=== PATIENT | male | born 1960 | race Caucasian/White ===

== ENCOUNTER 2022-12-25 08:29 | Day surgery (SDC) | payer BC, SELFPAY ==
--- NOTE | 2022-12-25 | PATH_ITS ---
[facility] Accession Number: [id number] No. of containers..02 Tissue . 01 Material submitted: . PART A: colon - TRANSVERSE POLYP PART B: rectosigmoid junction - RECTOSIGMOID POLYP . 01 Diagnosis: A. Transverse Colon Polyp, Polypectomy: Tubular adenoma. . B. Rectosigmoid Polyp, Polypectomy: Hyperplastic polyp. [facility] 12/27/2022 1156 Local . 01 Electronically signed: . Sallie Bateman MD, Pathologist NPI- [id number] . 01 Gross description: . Part A: TRANSVERSE POLYP: Received in formalin is 2 fragment(s) of marin, soft tissue measuring 0.5 x 0.3 x 0.1 cm to 0.4 x 0.3 x 0.1 cm submitted entirely in 1 cassette(s) Part B: RECTOSIGMOID POLYP: Received in formalin is multiple fragment(s) of marin, soft tissue measuring 0.7 x 0.3 x 0.1 cm in aggregate submitted entirely in 1 cassette(s) /AAY 12/26/2022 0448 Local . 01 Pathologist provided ICD-10: D12.6 . 01 CPT . 139994, 226648 Specimen Comment: A courtesy copy of this report has been sent to [phone] Performed at: 01 [facility] [address] [place] [address], [place], [place] [id number] MD Albaro Camarillo MD Phone: [phone]
[2022-12-25 08:44] VITALS: BMI 29.1
[2022-12-25 08:47] VITALS: BP 142/93; PULSE 93; RESP 12; TEMP 36; O2SAT 95
[2022-12-25] MEDS: LACTATED RINGERS 1,000 ML 42 ML IV (08:54)
--- NOTE | 2022-12-25 09:49 | PM.HP.1 ---
History of Present Illness History of Present Illness Date Patient Seen: 12/25/22 Time Patient Seen: 09:49 Chief complaint: Dx Colonoscopy Narrative: Personal history of colon polyps. Last exam was 5 years ago approximately. He is here for surveillance today. No symptoms. COUNTS INCLUDE 234 BEDS AT THE [facility] Social History household members: spouse Smoking Status: Never smoker alcohol intake: current Meds Home Medications and Allergies Home Medications Medication Instructions Recorded Confirmed Type rosuvastatin 20 mg tablet 20 mg PO DAILY 12/25/22 12/25/22 History Allergies Allergy/AdvReac Type Severity Reaction Status Date / Time No Known Drug Allergies Allergy Verified 12/25/22 08:42 Review of Systems Review of Systems ROS: Yes All systems reviewed with the patient and are negative except as otherwise documented Exam Vital Signs (past 8 hours): - 12/25/22 08:47 Temperature 96.8 F L Pulse Rate 93 H Respiratory Rate 12 Blood Pressure 142/93 H Pulse Oximetry 95 Oxygen Delivery Method Room Air Oxygen Delivery Method Room Air Const General: cooperative HENMT Head: normal to inspection Eyes General: appearance normal, both eyes and all related structures Neck Neck: normal visual inspection Chest Chest: normal inspection of the chest Resp Effort & Inspection: normal respiratory effort Cardio Rate: regular rate GI Inspection: normal to inspection Skin General: no rashes or lesions noted Neuro General: patient alert and patient awake Extrem General: normal to inspection and no pedal edema Psych Appearance: grossly normal Assessment & Plan Assessment & Plan narrative: 62-year-old male with a personal history of colon polyps. Colonoscopy is planned for today.
--- NOTE | 2022-12-25 09:50 | PM.PREOP ---
Pre-operative Note Interval Note History & Physical reviewed/Exam performed by Physician: Yes Changes to H&P: No ASA Class (for procedural sedation): I
--- NOTE | 2022-12-25 10:25 | PM.OP.COLON ---
Operative Date/Time/Diagnoses Date of procedure: 12/25/22 Time of procedure: 10:26 Pre-op diagnosis: Personal history of colon polyps. Post-op diagnosis: same Procedure & Clinicians Study performed: Colonoscopy with hot and cold snare polypectomies Same procedure as scheduled: Yes Indications: Personal history of colon polyps. Surgeon: Antonio Chandler Procedure Notes SCOAP/Timeout: Done Procedure in detail: After the risks and benefits were explained, written and verbal informed consent was obtained. The patient was brought into the procedure room and placed into the left lateral decubitus position. Please see anesthesia notes for sedation details. Digital rectal examination was accomplished. The scope was introduced into the patient and advanced under direct visualization to the cecum as identified by the appendiceal orifice and ileocecal valve. The scope was slowly withdrawn to carefully examine the mucosa for any defects or lesions. Comprehensive imaging was accomplished throughout the rectum including the dentate line. The colon was decompressed, the scope was then removed from the patient who tolerated the procedure somewhat suboptimally. He had a lot of coughing throughout the entire case. Adult colonoscope Bowel prep adequate Scope withdrawal time: 11 minutes Sedation minutes: 29 Complications: none Impression: The patient had moderate diverticulosis all throughout the sigmoid colon. There was an approximately 6-7 mm sessile polyp in the proximal transverse removed with hot snare. There was a 4-5 mm polyp at the rectosigmoid region removed with cold snare. No additional mucosal pathology was appreciated throughout. Grade 1-2 internal hemorrhoids were noted. Endoscopic diagnosis 1. Diverticulosis 2. Grade 1-2 hemorrhoids 3. Colon polyps Post-procedure Plan for aftercare: 1. Await histopathology. 2. Repeat colonoscopy 7 years. Disposition: PACU
[2022-12-25 10:32] VITALS: BP 134/81; PULSE 106; RESP 20; TEMP 36.6; O2SAT 92
[2022-12-25 10:37] VITALS: BP 114/71; PULSE 94; RESP 20; O2SAT 96
[2022-12-25 10:42] VITALS: BP 109/82; PULSE 92; RESP 21; O2SAT 98
[2022-12-25 10:47] VITALS: BP 121/78; PULSE 89; RESP 12; TEMP 36.1; O2SAT 98
[2022-12-25 10:52] LABS: COVID19 -Nasal RAPID Negative (Negative)
[2022-12-25 10:55] VITALS: BP 122/86; PULSE 94; RESP 17; O2SAT 97
== END 2022-12-25 11:05 | disposition home or self-care (01) ==
PROVIDERS: Referring Provider Internal Medicine Gastroenterology; Visit Provider Internal Medicine Gastroenterology
PROC: 0DJD8ZZ Inspection of Lower Intestinal Tract, Via Natural or Artificial Opening Endoscopic (ICD-10-PCS; CPT 45378; principal; 2022-12-25 09:30)
DX: Z12.11 Encounter for screening for malignant neoplasm of colon (principal); Z86.010 Personal history of colon polyps; Z11.52 Encounter for screening for COVID-19; K64.1 Second degree hemorrhoids; K57.30 Diverticulosis of large intestine without perforation or abscess without bleeding; D12.3 Benign neoplasm of transverse colon; K63.5 Polyp of colon
CPT/HCPCS: 45385; 87635; J2704